=== PATIENT | female | born 1935 | race Caucasian/White ===

== ENCOUNTER 2016-10-15 13:30 | Inpatient (IN) | payer OTHER, BC ==
--- NOTE | 2016-10-15 13:37 | PDOC ---
History of Present Illness <Sarina Marcano - Last Filed: 10/15/16 17:05> - General History Source: Patient, Jail Records Exam Limitations: Other (psychiatric history) - History of Present Illness Initial Comments: 10/15/16 14:22 The patient is an 81 year old female with a significant past medical history of asthma, hypertension, and bipolar disorder, brought by ambulance from [facility] to the Emergency Department with shortness of breath, and 3rd degree heart block. As per Dr. Charles, the patients EKG today shows 3rd degree heart block , with a heart rate in the 50s, elevated BUN 80 (baseline 40), and elevated creatinine 1.6 (baseline 1.2). The patient reports that she felt comfortable when she woke up this morning, but that she started experiencing shortness of breath shortly before coming to the ED. She also admits that she feels light headed, and has a cough. Patient is poor historian due to psychological history. The patient denies chest pain, or palpitations. Patient denies nausea, vomiting , and diarrhea. Patient denies headache, or visual changes. PCP: [facility] Tender: Dr. Charles Past Medical Hx: left prosthetic eye, breast cancer (Right) <Corinne Bradford - Last Filed: 10/15/16 17:08> - General Chief Complaint: Shortness of Breath Stated Complaint: DIFFICULTY BREATHING Time Seen by Provider: 10/15/16 13:36 Past History <Sarina Marcano - Last Filed: 10/15/16 17:05> <Corinne Bradford - Last Filed: 10/15/16 17:08> - Past Medical History Allergies/Adverse Reactions: Allergies Allergy/AdvReac Type Severity Reaction Status Date / Time cephalexin Allergy Verified 10/15/16 13:35 Penicillins Allergy Verified 10/15/16 13:35 Quinolones Allergy Verified 10/15/16 13:35 strawberry Allergy Verified 10/15/16 13:35 Sulfa (Sulfonamide Allergy Verified 10/15/16 13:35 Antibiotics) Home Medications: Ambulatory Orders Alendronate Na [Fosamax] 70 mg PO Q7D 10/15/16 Aripiprazole [Abilify -] 15 mg PO DAILY 10/15/16 Cholecalciferol (Vitamin D3) [Vitamin D3 -] 1,000 unit PO DAILY 10/15/16 Docusate Sodium 200 mg PO HS 10/15/16 Furosemide [Lasix] 40 mg PO ASDIR 10/15/16 Hydrocodone/Acetaminophen [[place] 5-325 Tablet] 1 each PO BID 10/15/16 Levothyroxine [Synthroid -] 88 mcg PO DAILY 10/15/16 Losartan Potassium 50 mg PO DAILY 10/15/16 Multivitamins [Tab-A-Vit -] 1 tab PO DAILY 10/15/16 Pravastatin Sodium [Pravachol (Nf)] 40 mg PO DAILY 10/15/16 Sennosides [Senna] 2 tab PO HS 10/15/16 Spironolactone 25 mg PO ASDIR 10/15/16 Trihexyphenidyl HCl 2 mg PO DAILY 10/15/16 Review of Systems - Review of Systems Able to Perform ROS?: Yes Comments:: 10/15/16 14:23 CONSTITUTIONAL: Present: + lightheadedness Absent: fever, no chills, no fatigue EYES: Absent: visual changes ENT: Absent: ear pain, no sore throat CARDIOVASCULAR: Absent: chest pain, no palpitations RESPIRATORY: Present: + shortness of breath, + cough GI: Absent: abdominal pain, no nausea, no vomiting, no constipation, no diarrhea GENITOURINARY: Absent: dysuria, no frequency, no hematuria MUSCULOSKELETAL: Absent: back pain, no arthralgia, no myalgia SKIN: Absent: rash NEURO: Absent: headache <Corinne Bradford - Last Filed: 10/15/16 17:08> *Physical Exam - Vital Signs Last Vital Signs Temp Pulse Resp BP Pulse Ox 97.4 F L 41 L 20 140/48 100 10/15/16 13:36 10/15/16 14:19 10/15/16 14:19 10/15/16 14:19 10/15/16 14:19 - Physical Exam Comments: 10/15/16 14:24 GENERAL: Well developed, well nourished. Awake and alert. No acute distress. HEENT: Normocephalic, atraumatic. PERRLA, EOMI. No conjunctival pallor. Sclera are non- icteric. Moist mucous membranes. Oropharynx is clear. NECK: Supple. Full ROM. No JVD. Carotid pulses 2+ and symmetric, without bruits. No thyromegaly. No lymphadenopathy. CARDIOVASCULAR: Bradycardic and irregular. No murmurs, rubs, or gallops. Distal pulses are 2+ and symmetric. PULMONARY: Tachypneic. Rhonchi at bases of lungs bilaterally. No evidence of respiratory distress. Lungs clear to auscultation bilaterally. No wheezing, or rales. ABDOMINAL: Soft. Non-tender. Non-distended. No rebound or guarding. No organomegaly. Normoactive bowel sounds. MUSCULOSKELETAL Normal range of motion at all joints. No bony deformities or tenderness. No CVA tenderness. EXTREMITIES: 2+ pitting edema to the knee bilaterally. No cyanosis. No clubbing. No calf tenderness. SKIN: Warm and dry. Normal capillary refill. No rashes. No jaundice. NEUROLOGICAL: Alert, awake, appropriate. Cranial nerves 2-12 intact. PSYCHIATRIC: Cooperative. Good eye contact. Appropriate mood and affect. <Corinne Bradford - Last Filed: 10/15/16 17:08> ED Treatment Course - LABORATORY CBC & Chemistry Diagram: 10/15/16 15:05 10/15/16 15:05 <Sarina Marcano - Last Filed: 10/15/16 17:05> - LABORATORY CBC & Chemistry Diagram: 10/15/16 15:05 10/15/16 15:05 - RADIOLOGY Radiograph Interpretation: 10/15/16 15:36 Chest XRay As reviewed by Dr. Bryn Mccarthy IMPRESSION: Limited exam due to shallow inspiration. Increased lung markings in both lower lung zones with elevation of the right diaphragm. <Corinne Bradford - Last Filed: 10/15/16 17:08> Medical Decision Making - Medical Decision Making 10/15/16 15:28 Pt presents to the ED after [facility] from [facility] for suspected third degree HB. On arrival to the ED, patient found to be normotensive, with HR in the 40s. Complaining of shortness of breath and cough that are slightly worse than her chronic shortness of breath. Mildly hypoxic and tachycardic, improved with oxygen. EKG examined with cardiology attending---appears to be second degree HB consistent with Wenchybach. Will check labs, admit to telemetry. <Sarina Marcano - Last Filed: 10/15/16 17:05> - Medical Decision Making 10/15/16 17:08 Dr. Yolanda Inman was called at 4:55. Dr. Inman returned call at 5:[address] Marcano about the patient's care. <Corinne Bradford - Last Filed: 10/15/16 17:08> *DC/Admit/Observation/Transfer - Discharge Dispostion Admit: Yes Decision to Admit order Date/Time: 10/15/16 17:05 <Sarina Marcano - Last Filed: 10/15/16 17:05> - Attestations Scribe Attestion: 10/15/16 14:26 Documentation prepared by Corinne Bradford, acting as medical intern for Sarina Marcano MD. <Corinne Bradford - Last Filed: 10/15/16 17:08> Diagnosis at time of Disposition: Congestive heart failure (CHF) Qualifiers: Congestive heart failure type: unspecified congestive heart failure type Congestive heart failure chronicity: acute on chronic Qualified Code(s): I50.9 - Heart failure, unspecified
--- NOTE | 2016-10-15 14:56 | PN ---
Progress Note (short form) - Note Progress Note: Cardiology Consult Dictated IMP: 1. 2:1 AV block, with narrow complex QRS and VA prolongation suggestive Wenkebach 2. Volume overload 3. History of breast Cancer REC: 1. TELE 2. Check TSH 3. Echo 4. Avoid AV nalini agents 5. EP Consult. Further reccs pending review of telemetry over next 24-48 hours.
[2016-10-15 15:47] LABS: ALBUMIN 3.3 g/dl (3.4-5.0); ANION GAP 9 (8-16); CALCIUM 8.5 mg/dL (8.5-10.1); CO2 31 mmol/L (21-32); CREATININE 1.7 mg/dL (0.55-1.02); GLUCOSE,RANDOM 102 mg/dL (74-106); SGOT/AST 28 U/L (15-37); SGPT/ALT 25 U/L (12-78)
--- NOTE | 2016-10-15 15:50 | CONS ---
CARDIOLOGY CONSULTATION DATE OF CONSULTATION: 10/15/2016 REQUESTED BY: Aixa Beltre MD An 81-year-old female [facility] resident with history of breast cancer, transferred to the emergency department for report of third-degree AV block and dyspnea on exertion. The patient denies chest pain, but has mild dyspnea over the last several days. She denies prior [place]. She denies syncope, denies lightheadedness. She does have increased bilateral lower extremity edema over the last 1 to 2 weeks. PAST MEDICAL HISTORY: As above. She [facility] in [facility] a 2:1 AV block in the past. ALLERGIES: CEPHALEXIN; PENICILLIN; QUINOLONES; STRAWBERRY. HOME MEDICATIONS: Senna 2 tablets nightly, Colace 200 mg p.o. nightly, Pravachol of 40 mg p.o. daily for hyperlipidemia, Abilify 15 mg p.o. daily, multivitamin, losartan 50 mg p.o. daily for hypertension, vitamin D3, Fosamax supplementation for osteoporosis, Lasix 40 mg p.o. daily presumably for chronic congestive heart failure (unknown type), spironolactone 25 p.o. daily, and Synthroid 88 mcg daily for hypothyroidism. FAMILY HISTORY: Could not be obtained. SOCIAL HISTORY: Nonsmoker, according to our records. PHYSICAL EXAMINATION: Vital signs: Temperature 97.4, pulse 52, blood pressure 150/50, O2 of 100 on 4 L. Neck: No bruits. Heart: S1-2 regular with systolic murmur audible throughout the precordium. Chest: Bibasilar rales one-third up. Abdomen: Soft, nontender. Extremities: No edema. Chest X-ray showed increased pulmonary vascular congestion. Labs are pending. EKG showed sinus bradycardia at 43 beats per minute with 2:1 block, CO prolongation suggestive of Wenckebach, LVH. ASSESSMENT: 1. Two to one block, seems to be Wenckebach. 2. History of breast cancer. 3. History of congestive heart failure, unknown type. 4. History of hypothyroidism. PLAN: 1. Telemetry x24 hours. 2. Check TSH. 3. Check echocardiogram. 4. EP consultation. 5. Avoid AV-nalini agents. 6. Would diurese gently with Lasix 20 mg IV b.i.d. Further recommendations pending above. Thank you for the consultation. DEAN BUTTS M.D. [id number]
[2016-10-15 15:52] LABS: ALK PHOS 91 U/L (45-117); BILIRUBIN,TOTAL 0.4 mg/dL (0.2-1.0); TOT PROT 5.7 g/dl (6.4-8.2); TROPONIN I 0.17 ng/ml (0.00-0.05)
[2016-10-15 16:02] LABS: BASOPHIL 0.4 % (0-2.0); EOSINOPHIL 0.6 % (0-4.5); MCHC 31.2 g/dl (32.0-36.0); MEAN CELL VOLUME 86.5 fl (80-96); MEAN PLT VOLUME 9.8 fl (7.5-11.1); NEUTROPHILS 62.9 % (42.8-82.8); PLATELET COUNT 132 K/MM3 (134-434); RDW 15.4 % (11.6-15.6); WHITE BLOOD COUNT 5.8 K/mm3 (4.0-10.0)
[2016-10-15] MEDS ORDERED: FUROSEMIDE 40 MG/4 ML INJECTABLE VIAL IVPUSH ONE (17:04)
[2016-10-15] MEDS ORDERED: FUROSEMIDE 40 MG/4 ML INJECTABLE VIAL ONE (17:10)
[2016-10-15 19:21] LABS: TROPONIN I 0.16 ng/ml (0.00-0.05)
[2016-10-15] MEDS ORDERED: DOCUSATE SODIUM 100 MG CAPSULE (FP) PO SCH (22:00)
[2016-10-15] MEDS ORDERED: ATORVASTATIN CA 10 MG TABLET (FP) PO SCH (22:00)
[2016-10-16 02:14] VITALS: BMI 24.7
[2016-10-16] MEDS ORDERED: LEVOTHYROXINE NA 88 MCG TABLET (FP) PO SCH (07:00)
[2016-10-16 08:37] LABS: BASOPHIL 0.3 % (0-2.0); EOSINOPHIL 1.7 % (0-4.5); MCH 27.2 pg (25.7-33.7); MCHC 31.4 g/dl (32.0-36.0); MEAN CELL VOLUME 86.8 fl (80-96); MEAN PLT VOLUME 8.4 fl (7.5-11.1); NEUTROPHILS 66.4 % (42.8-82.8); PLATELET COUNT 110 K/MM3 (134-434); RDW 15.3 % (11.6-15.6); WHITE BLOOD COUNT 6.8 K/mm3 (4.0-10.0)
--- NOTE | 2016-10-16 09:04 | PN ---
Progress Note, Physician Chief Complaint: feeling better Echo shows severe TELE: 2:1 block, appears to be predominantly Wenkebach but in certain strips difficult to tell if not higher grade - Current Medication List Current Medications: Active Medications Atorvastatin Calcium (Lipitor -) 10 mg PO [facility] Last Admin: 10/15/16 23:16 Dose: 10 mg Docusate Sodium (Colace -) 200 mg PO [facility] Last Admin: 10/15/16 23:16 Dose: 200 mg Furosemide (Lasix Injection -) 20 mg IVPB DAILY [facility] Levothyroxine Sodium (Synthroid -) 88 mcg PO DAILY@0700 [facility] Last Admin: 10/16/16 06:05 Dose: 88 mcg - Objective Vital Signs: Vital Signs Temperature 97.3 F L 10/16/16 05:46 Pulse Rate 74 10/16/16 05:46 Respiratory Rate 20 10/16/16 05:46 Blood Pressure 137/50 10/16/16 05:46 O2 Sat by Pulse Oximetry (%) 98 10/16/16 00:00 Constitutional: Yes: No Distress Eyes: Yes: Conjunctiva Clear Cardiovascular: Yes: Regular Rate and Rhythm (3/6 VICKIE RSB) Respiratory: Yes: Other (rales at bases 1/3) Gastrointestinal: Yes: Soft Edema: No Neurological: Yes: Alert Labs: CBC, BMP 10/16/16 08:10 Laboratory Tests 10/15/16 10/15/16 10/16/16 15:05 18:28 08:10 WBC 6.8 Hgb 12.4 Plt Count 110 L Sodium Potassium Creatinine Creatine Kinase 84 68 Troponin I 0.17 H 0.16 H 10/16/16 08:10 WBC Hgb Plt Count Sodium Pending Potassium Pending Creatinine Pending Creatine Kinase Troponin I - ....Imaging EKG: Image Reviewed Assessment/Plan Severe Acute on chronic diastolic CHF 2: 1 AV block REC: Will transfer to tertiary care center ([facility]) for further diuresis and medical optimization with ultimate plan for TAVR evaluation and possible PPM. D/W patient and her sister who agree for transfer. Dr. Mi richards MD at [facility].
--- NOTE | 2016-10-16 09:05 | HP ---
Admitting History and Physical - Past Medical History ...: No - Smoking History Smoking history: Never smoked Have you smoked in the past 12 months: No - Alcohol/Substance Use Hx Alcohol Use: No <Sunny Inman - Last Filed: 10/16/16 09:05> - Admission History of Present Illness: The patient is an 81-year-old woman, from [facility], with a significant past medical history of asthma, hypertension, and bipolar disorder who was sent to the emergency department this morning by skilled nursing for suspected third degree heart block and shortness of breath. Patients workup showed she is having Wenkebach. Echo also showed severe aortic stenosis. Patient admitted to Telemetry. She was bradycardic also. Patient seen and examined today. Chart reviewed today. Today, she is comfortable. Denies chest pain or shortness of breath. Cough is present. Afebrile. Denies headache or dizziness. No fever or chills. Patient also found to be in CHF exacerbation as well as renal insufficiency. Patient got Lasix in the ER. History Source: Patient, Medical Record Limitations to Obtaining History: Clinical Condition <Valentina Hope - Last Filed: 10/16/16 11:30> Home Medications <Sunny Inman - Last Filed: 10/16/16 09:05> <Valentina Hope - Last Filed: 10/16/16 11:30> - Allergies Allergies/Adverse Reactions: Allergies Allergy/AdvReac Type Severity Reaction Status Date / Time cephalexin Allergy Verified 10/15/16 13:35 Penicillins Allergy Verified 10/15/16 13:35 Quinolones Allergy Verified 10/15/16 13:35 strawberry Allergy Verified 10/15/16 13:35 Sulfa (Sulfonamide Allergy Verified 10/15/16 13:35 Antibiotics) - Home Medications Home Medications: Ambulatory Orders Alendronate Na [Fosamax] 70 mg PO Q7D 10/15/16 Aripiprazole [Abilify -] 15 mg PO DAILY 10/15/16 Cholecalciferol (Vitamin D3) [Vitamin D3 -] 1,000 unit PO DAILY 10/15/16 Docusate Sodium 200 mg PO HS 10/15/16 Furosemide [Lasix] 40 mg PO ASDIR 10/15/16 Hydrocodone/Acetaminophen [[place] 5-325 Tablet] 1 each PO BID 10/15/16 Levothyroxine [Synthroid -] 88 mcg PO DAILY 10/15/16 Losartan Potassium 50 mg PO DAILY 10/15/16 Multivitamins [Tab-A-Vit -] 1 tab PO DAILY 10/15/16 Pravastatin Sodium [Pravachol (Nf)] 40 mg PO DAILY 10/15/16 Sennosides [Senna] 2 tab PO HS 10/15/16 Spironolactone 25 mg PO ASDIR 10/15/16 Trihexyphenidyl HCl 2 mg PO DAILY 10/15/16 Review of Systems Unable to obtain ROS, reason: See HPI. <Valentina Hope - Last Filed: 10/16/16 11:30> Physical Examination Vital Signs: Vital Signs Temperature 97.3 F L 10/16/16 05:46 Pulse Rate 74 10/16/16 05:46 Respiratory Rate 20 10/16/16 05:46 Blood Pressure 137/50 10/16/16 05:46 O2 Sat by Pulse Oximetry (%) 98 10/16/16 00:00 Labs: CBC, BMP 10/16/16 08:10 <Sunny Inman - Last Filed: 10/16/16 09:05> Vital Signs: Vital Signs Temperature 97.8 F 10/16/16 09:50 Pulse Rate 80 10/16/16 09:50 Respiratory Rate 18 10/16/16 09:50 Blood Pressure 123/46 10/16/16 09:50 O2 Sat by Pulse Oximetry (%) 98 10/16/16 00:00 Constitutional: Yes: No Distress, Calm Neck: Yes: Supple Cardiovascular: Yes: Regular Rate and Rhythm Respiratory: Yes: Other (Few Scattered Rhonchi, otherwise clear.) Gastrointestinal: Yes: Soft Edema: Yes Edema: LLE: Trace, RLE: Trace Neurological: Yes: Alert Psychiatric: Yes: Alert Labs: CBC, BMP 10/16/16 08:10 10/16/16 08:10 <Valentina Hope - Last Filed: 10/16/16 11:30> Imaging - Results Chest X-ray: Report Reviewed EKG: Report Reviewed Other: Report Reviewed (Echocardiogram) <Valentina Hope - Last Filed: 10/16/16 11:30> Problem List - Problems (1) Congestive heart failure (CHF) Code(s): I50.9 - HEART FAILURE, UNSPECIFIED Qualifiers: Congestive heart failure type: unspecified congestive heart failure type Congestive heart failure chronicity: acute on chronic Qualified Code(s): I50.9 - Heart failure, unspecified (2) Aortic stenosis Code(s): I35.0 - NONRHEUMATIC AORTIC (VALVE) STENOSIS (3) Renal insufficiency Code(s): N28.9 - DISORDER OF KIDNEY AND URETER, UNSPECIFIED (4) Wenckebach Code(s): I44.1 - ATRIOVENTRICULAR BLOCK, SECOND DEGREE <Valentina Hope - Last Filed: 10/16/16 11:30> Assessment/Plan - Monitor on Telemetry. - Continue IV Lasix. - Creatinine better. - Robutussin for cough. - Nebulizer treatment. - Cardiology consult noted and appreciated. - Patient is up for transfer to [facility] for cardiac cath today. - Discussed with nursing staff also. Documentation prepared by Valentina Hope, acting as a caregivers non medical for Sunny Inman MD. <Valentina Hope - Last Filed: 10/16/16 11:30>
[2016-10-16 09:06] LABS: ALBUMIN 2.8 g/dl (3.4-5.0); ANION GAP 5 (8-16); BILIRUBIN,TOTAL 0.4 mg/dL (0.2-1.0); CALCIUM 8.4 mg/dL (8.5-10.1); CO2 33 mmol/L (21-32); CREATININE 1.4 mg/dL (0.55-1.02); GLUCOSE,RANDOM 82 mg/dL (74-106); SGOT/AST 18 U/L (15-37); SGPT/ALT 17 U/L (12-78); TOT PROT 4.9 g/dl (6.4-8.2)
[2016-10-16 09:07] LABS: ALK PHOS 74 U/L (45-117)
[2016-10-16 09:25] LABS: THYROID STIMULATING HORMONE 0.76 uIU/ml (0.358-3.74)
[2016-10-16] MEDS ORDERED: FUROSEMIDE 40 MG/4 ML INJECTABLE VIAL IVPB SCH (10:00)
[2016-10-16] MEDS ORDERED: ENOXAPARIN NA (PORCINE) 40 MG/0.4 ML DISP.SYRIN SQ SCH (10:00)
[2016-10-16] MEDS ORDERED: LOSARTAN POTASSIUM 50 MG TABLET (FP) PO SCH (10:00)
[2016-10-16] MEDS ORDERED: ALBUTEROL SO4 0.083% IH SOL 2.5 MG/3 ML VIAL.NEB. NEB PRN (11:23)
[2016-10-16] MEDS ORDERED: guaiFENesin 200 MG/10 ML 10 ML UNIT-DOSE CUPS PO PRN (11:23)
[2016-10-16 14:35] VITALS: BP 131/48; PULSE 71; TEMP 97.9
--- NOTE | 2016-10-18 14:57 | DS ---
Physical Examination Vital Signs: Vital Signs Temperature 97.9 F 10/16/16 14:34 Pulse Rate 71 10/16/16 14:34 Respiratory Rate 18 10/16/16 14:34 Blood Pressure 131/48 10/16/16 14:34 O2 Sat by Pulse Oximetry (%) 98 10/16/16 10:00 Findings/Remarks: see h/p 10/16/16 Labs: CBC, BMP 10/16/16 08:10 10/16/16 08:10 Discharge Summary Reason For Visit: CHF Hospital Course: transferred for cath on 10/16/16 Condition: Stable - Instructions Disposition: TRANSFER ACUTE CARE/OTHER HOSP - Home Medications Comprehensive Discharge Medication List: Ambulatory Orders Alendronate Na [Fosamax] 70 mg PO Q7D 10/15/16 Aripiprazole [Abilify -] 15 mg PO DAILY 10/15/16 Cholecalciferol (Vitamin D3) [Vitamin D3 -] 1,000 unit PO DAILY 10/15/16 Docusate Sodium 200 mg PO HS 10/15/16 Furosemide [Lasix] 40 mg PO ASDIR 10/15/16 Hydrocodone/Acetaminophen [[place] 5-325 Tablet] 1 each PO BID 10/15/16 Levothyroxine [Synthroid -] 88 mcg PO DAILY 10/15/16 Losartan Potassium 50 mg PO DAILY 10/15/16 Multivitamins [Tab-A-Vit -] 1 tab PO DAILY 10/15/16 Pravastatin Sodium [Pravachol (Nf)] 40 mg PO DAILY 10/15/16 Sennosides [Senna] 2 tab PO HS 10/15/16 Spironolactone 25 mg PO ASDIR 10/15/16 Trihexyphenidyl HCl 2 mg PO DAILY 10/15/16
--- NOTE | 2016-10-23 10:42 | EKG ---
Test Reason : Blood Pressure : / mmHG Vent. Rate : 043 BPM Atrial Rate : 043 BPM P-R Int : 296 ms QRS Dur : 074 ms QT Int : 424 ms P-R-T Axes : 054 -12 021 degrees QTc Int : 358 ms MARKED SINUS BRADYCARDIA WITH 1ST DEGREE A-V BLOCK MODERATE VOLTAGE CRITERIA FOR LVH, MAY BE NORMAL VARIANT ABNORMAL ECG NO PREVIOUS ECGS AVAILABLE Confirmed by DEAN BUTTS MD ([id number]) on 10/23/2016 10:41:41 AM Referred By: Confirmed By:DEAN BUTTS MD
== END 2016-10-16 18:55 | disposition short-term general hospital (02) | DRG 308 ==
LOC: JER 13:30 → JERBED 17:06 → J4S 10-16 00:02
PROVIDERS: ADMIT Internal Medicine; ATTEND Internal Medicine
DX: I44.1 Atrioventricular block, second degree (principal); I50.33 Acute on chronic diastolic (congestive) heart failure; I44.2 Atrioventricular block, complete; F31.9 Bipolar disorder, unspecified; J45.909 Unspecified asthma, uncomplicated; R00.0 Tachycardia, unspecified; I11.0 Hypertensive heart disease with heart failure; E03.9 Hypothyroidism, unspecified; I35.0 Nonrheumatic aortic (valve) stenosis; N28.9 Disorder of kidney and ureter, unspecified; Z85.3 Personal history of malignant neoplasm of breast
CPT/HCPCS: 36415; 71010-TC; 80053; 82550; 83605; 83880; 84443; 84484; 85025; 93005; 93010; 93306-TC; 99285-25

== ENCOUNTER 2016-12-02 13:50 | Emergency (ER) | payer OTHER, BC ==
[2016-12-02 13:56] VITALS: BMI 24.0
--- NOTE | 2016-12-02 14:48 | PDOC ---
History of Present Illness - General Chief Complaint: Injury Stated Complaint: FALL Time Seen by Provider: 12/02/16 14:30 - History of Present Illness Initial Comments: 12/02/16 15:34 Patient is an 81-year-old female with past medical history of hypertension who presents to the emergency department today complaining of right hip pain. Patient states that she was on a chair lift coming out of ambulance going to her doctor's appointment when she slid off the chair and fell backwards. Patient states that she landed on her right hip and butt. She denies hitting her head, loss of consciousness. She denies head, neck, and back pain. She rates her pain a 2 out of 10. Denies fevers, chills, weakness, numbness, tingling, chest pain, shortness of breath nausea, vomiting and diarrhea. Past History - Travel Traveled outside of the country in the last 30 days: No Close contact w/someone who was outside of country & ill: No - Past Medical History Allergies/Adverse Reactions: Allergies Allergy/AdvReac Type Severity Reaction Status Date / Time cephalexin Allergy Verified 12/02/16 13:57 Penicillins Allergy Verified 12/02/16 13:57 Quinolones Allergy Verified 12/02/16 13:57 strawberry Allergy Verified 12/02/16 13:57 Sulfa (Sulfonamide Allergy Verified 12/02/16 13:57 Antibiotics) Home Medications: Ambulatory Orders Alendronate Na [Fosamax] 70 mg PO Q7D 10/15/16 Aripiprazole [Abilify -] 15 mg PO DAILY 10/15/16 Cholecalciferol (Vitamin D3) [Vitamin D3 -] 1,000 unit PO DAILY 10/15/16 Docusate Sodium 200 mg PO HS 10/15/16 Furosemide [Lasix] 40 mg PO ASDIR 10/15/16 Hydrocodone/Acetaminophen [[place] 5-325 Tablet] 1 each PO BID 10/15/16 Levothyroxine [Synthroid -] 88 mcg PO DAILY 10/15/16 Losartan Potassium 50 mg PO DAILY 10/15/16 Multivitamins [Tab-A-Vit -] 1 tab PO DAILY 10/15/16 Pravastatin Sodium [Pravachol (Nf)] 40 mg PO DAILY 10/15/16 Sennosides [Senna] 2 tab PO HS 06/15/17 Spironolactone 25 mg PO ASDIR 10/15/16 Trihexyphenidyl HCl 2 mg PO DAILY 10/15/16 Cancer: Yes (cad) Cardiac Disorders: Yes (cad) GI Disorders: Yes (chronic kidney disease stage 3) HTN: Yes Hypercholesterolemia: Yes - Surgical History Appendectomy: Yes - Psycho/Social/Smoking Cessation Hx Anxiety: No Suicidal Ideation: No Smoking History: Never smoked Have you smoked in the past 12 months: No Hx Alcohol Use: No Drug/Substance Use Hx: No Substance Use Type: None Hx Substance Use Treatment: No Review of Systems - Review of Systems Able to Perform ROS?: Yes Is the patient limited Beninese proficient: No Constitutional: No: Chills, Fever, Weakness Musculoskeletal: Yes: Joint Pain (R hip). No: Joint Swelling, Neck Pain, Joint Stiffness Integumentary: No: Bruising, Lesions, Rash Neurological: No: Numbness, Paresthesia, Weakness, Unsteady Gait *Physical Exam - Vital Signs Last Vital Signs Temp Pulse Resp BP Pulse Ox 98.0 F 98 H 20 141/79 96 12/02/16 13:52 12/02/16 13:52 12/02/16 13:52 12/02/16 13:52 12/02/16 13:52 - Physical Exam Comments: 12/02/16 15:35 GENERAL: Well developed, well nourished. AAOx3 No acute distress. Breathing easily HEENT: Normocephalic, atraumatic. PERRLA, EOMI. No conjunctival pallor. Sclera are non- icteric. Moist mucous membranes. Oropharynx is clear. NECK: Supple. Full ROM. No JVD. Carotid pulses 2+ and symmetric, without bruits. No thyromegaly. No lymphadenopathy. CARDIOVASCULAR: Regular rate and rhythm. No murmurs, rubs, or gallops. Distal pulses are 2+ and symmetric. PULMONARY: No evidence of respiratory distress. Lungs clear to auscultation bilaterally. No wheezing, rales or rhonchi. ABDOMINAL: Soft. Non-tender. Non-distended. No rebound or guarding. No organomegaly. Normoactive bowel sounds. MUSCULOSKELETAL No midline tenderness. Normal range of motion at all joints. No bony deformities or tenderness. No CVA tenderness. EXTREMITIES: No TTP of any extermities, no limb length discrepancy. No cyanosis. No clubbing. No edema. No calf tenderness. SKIN: Warm and dry. Normal capillary refill. No rashes. No jaundice. NEUROLOGICAL: Alert, awake, appropriate. Cranial nerves 2-12 intact. No deficits to light touch and temperature in face, upper extremities and lower extremities. No motor deficits in the in face, upper extremities and lower extremities. Normoreflexic in the upper and lower extremities. Normal speech. Toes are down- going bilaterally. Gait is normal without ataxia. PSYCHIATRIC: Cooperative. Good eye contact. Appropriate mood and affect. Medical Decision Making - Medical Decision Making 12/02/16 15:38 Patient is an 81-year-old female with past medical history of hypertension who presents to the emergency department today complaining of right hip pain. Given patient's mechanism we will obtain right hip and pelvis x-ray to rule out fracture. Patient's neuro exam is normal, denies hitting her head and no loss of consciousness. We will defer CT head at this time. Patient has no other complaints at this time. Patient states that she does not want Tylenol for pain. 1. R hip and pelvis x-ray 2. Re-evaluate 12/02/16 17:11 x-ray shows no evidence of fracture at this time. Pt. states she feels fine and has no pain. Again denies hitting her head. Will discharge back to [facility]. She may have tylenol or motrin as needed for pain. return instructions given for increasing pain, headache, nausea, vomiting, weakness, or any changes in her symptoms *DC/Admit/Observation/Transfer Diagnosis at time of Disposition: Hip pain, right Fall Qualifiers: Encounter type: initial encounter Qualified Code(s): W19.XXXA - Unspecified fall, initial encounter - Discharge Dispostion Admit: No - Referrals Referrals: Bryan Freire MD [Primary Care Provider] - - Patient Instructions Printed Discharge Instructions: How to Prevent Falls Additional Instructions: Your x-ray today showed no broken bones. Your exam was normal. Your neurological exam was normal and you did not hit your head. You may ice the area as needed for pain, and take ibuprofen or tylenol as needed for pain. Follow up with your primary care doctor. Return to the ED if you have altered mental status, headache, dizziness, fevers , chills, nausea, vomiting, or any changes in your symptoms.
[2016-12-02 17:01] VITALS: BP 142/78; PULSE 84; TEMP 98.6
== END 2016-12-02 17:01 | disposition home or self-care (01) ==
LOC: JER 13:50
DX: M25.551 Pain in right hip (principal); I10 Essential (primary) hypertension; I25.10 Atherosclerotic heart disease of native coronary artery without angina pectoris; E78.00 Pure hypercholesterolemia, unspecified; Z88.2 Allergy status to sulfonamides; Z91.018 Allergy to other foods; W07.XXXA Fall from chair, initial encounter; Y93.89 Activity, other specified; Y92.89 Other specified places as the place of occurrence of the external cause
CPT/HCPCS: 73523-TC; 99282-25